=== PATIENT | female | born 1960 | race Caucasian/White ===

== ENCOUNTER 2018-07-25 12:15 | Inpatient (IN) | payer MEDICARE, OTHER | END 2018-08-01 12:00 | disposition home or self-care (01) | LOC: ER 12:15 → ORTHO 4S 07-27 14:09 → ED HOLD 16:30 → CICU 2S 20:19 | PROC: 4A023N7 Measurement of Cardiac Sampling and Pressure, Left Heart, Percutaneous Approach (ICD-10-PCS; principal; ~2018-07-25) | DX: A41.9 Sepsis, unspecified organism (principal); I21.4 Non-ST elevation (NSTEMI) myocardial infarction; G03.9 Meningitis, unspecified; F11.20 Opioid dependence, uncomplicated; E11.9 Type 2 diabetes mellitus without complications; R56.9 Unspecified convulsions ==